=== PATIENT | female | born 1950 | race Caucasian/White ===

== ENCOUNTER 2024-01-30 14:26 | Inpatient (IN) | payer MEDICARE, OTHER, SELFPAY ==
[2024-01-30] VITALS (10 sets, daily range): BP systolic 114–158; BP diastolic 45–83; BMI 30.4
--- NOTE | 2024-01-30 09:00 | ED.GENMED ---
History of Present Illness
General
Chief Complaint: Chest Pain
Source: patient
Exam Limitations: none
Time Seen by Provider: 01/30/24 08:59
Travel History
Have you had any contact with someone who has COVID-19?: No
Do you have any symptoms of coronavirus? Fever > 100 degrees, chills, cough, shortness of breath, sore throat, loss of taste or smell, muscle aches, or headache?: No
History of Present Illness
History of Present Illness:
73-year-old female presenting with burning in her chest radiating to the right jaw and some to the left arm. Started at 637 this morning. Occurred at rest. No shortness of breath no shearing back pain. Some weakness in her legs bilaterally.
Patient is fairly active and was active yesterday without issues. Has symptoms now but relatively minimal
Past History
Past History
ED Past Medical History: Arrthythmia (History of atrial fibrillation), GERD, HTN and Other (History of hiatal hernia and history of pneumonia, back pain, back pain, anxiety)
ED Past Surgical History: Gynecological (Partial hysterectomy) and Other (cardiac ablation)
Social History
Tobacco: Non-smoker
Alcohol: Occasional
Drug: None
Personal: Other (unknown)
Living: with family
Employment: Employed
Family History
Family History: Other (Noncontributory)
Review of Systems
Review of Systems
All Other Systems: Not applicable
ABD/GI: Reports no symptoms
Neurological: Reports no symptoms
Phy Exam
Physical Exam
Physical Exam:
GENERAL: Alert and oriented in no apparent distress
EYE: Orbits normal.
NECK: Supple. No thyroid palpable
ENT: Pharynx without erythema
CARDIAC: Regular rate and rhythm without any obvious murmurs. Good distal pulses and color
LUNGS: Clear breath sounds,normal
ABDOMEN: Soft, without focal tenderness or distention
NEUROLOGICAL: Alert and oriented , grossly non-focal
SKIN: Warm and dry, no rash or lesion, no discoloration, skin intact.
MUSCULOSKELETAL: No edema,no deformity.Good color
PSYCH: Normal and appropriate interaction.
Scores
Heart Score for Chest Pain Patients
STEMI patient?: Not applicable
Course
Orders/Labs/Results
Orders:
Orders
01/30/24 08:02
EKG [Electrocardiogram (*1)] Urgent
Reason for Study: Chest Pain
EKG- Treatment ONCE
01/30/24 09:09
IV Insert/Care/Rem.- Treatment PRN
0.9% Sodium Chloride 500 ml [Nss] 500 ml IV BOLUS
Pulse Ox/cont/shift [RESP] Stat
Quantity: 1
01/30/24 09:10
CT Chest Pe Study Urgent
Comment:
Reason For Exam: Chest pain to the jaw with bilateral leg pain
Cardiac Monitoring- Treatment ONCE
01/30/24 09:13
Complete Blood Count/With Diff Urgent
Comprehensive Metabolic Panel Urgent
Lipase Urgent
TSH Reflex To Free T4 Urgent
Troponin I Urgent
01/30/24 11:58
Mag Hydrox/Al Hydrox/Simeth [Maalox] 30 ml Phenobarb/Hyoscy/Atropine/Scop [] 10 ml PO NOW
01/30/24 11:59
Electrocardiogram (*1) Stat
Reason for Study: Other
Other Reason for Exam: chest pain
EKG- Treatment ONCE
01/30/24 12:20
Troponin I Urgent
01/30/24 12:31
Mag Hydrox/Al Hydrox/Simeth [Maalox] 30 ml .ROUTE .STK-MED ONE
Phenobarb/Hyoscy/Atropine/Scop [] 10 ml .ROUTE .STK-MED ONE
01/30/24 14:01
Admit/Transfer Patient As Directed
Co-Sign Provider:
Level of Care: Inpatient admission
Assign to:: Telemetry
Physician / Group: Hospitalist
Diagnosis: PE
Reason for Telemetry: Chest Pain syndromes
Date to Stop Telemetry: 02/01/24
Time to Stop Telemetry: 11:00
Reason for Hospitalization: PE
Expected length of stay greater than two midnights?: Yes
ELOS- Estimated Length of Stay in days: 3
I certify the patient meets the requirements for IP care: Yes
01/30/24 14:03
Code Status As Directed
Resuscitation Status: Full Code
01/30/24 14:[address] See Dose Instructions PO NOW STA
Discontinue all Active Warfarin orders?: Not Applicable
02/01/24 11:00
DC Protocol for Telemetry ONCE
Abnormal Lab Results
01/30/24
09:13
RBC 3.99 L 10^6/uL
(4.20-5.40)
MCH 31.8 H pg
(27.0-31.0)
MPV 11.1 H fL
(7.4-10.4)
Glucose 107 H mg/dl
(70-99)
01/30/24 09:13
01/30/24 09:13
Vital Signs
Initial and Last Documented VS:
Initial Vital Signs
Temp Pulse Resp BP Pulse Ox
98.4 F 59 16 130/76 98
01/30/24 08:10 01/30/24 08:10 01/30/24 08:10 01/30/24 08:10 01/30/24 08:10
Last Documented Vital Signs
Temp Pulse Resp BP Pulse Ox
98.4 F 66 15 134/70 98
01/30/24 08:10 01/30/24 11:12 01/30/24 11:12 01/30/24 12:34 01/30/24 08:10
MDM/Problems Addressed
Differential Diagnosis Includes:
Patient with intermittent chest burning to the jaw and arm. Nonexertional. Patient had a nuclear stress test last year that was felt to be negative by cardiology but upon reading it seemed mildly inconclusive. Clinically stable. Workup in
progress
*Radiology
Radiology exam reviewed: radiology read reviewed (Segmental PE)
*Pulse Oximetry
Patient hypoxic: no
*EKG
Interpreted by ED Provider?: Yes
Interpretation: abnormal
Comparison EKG: changes noted
Heart Rate: 60
Rate: normal
Rhythm: sinus
[place]: normal axis
Interval: normal interval
QRS Pattern: low voltage
Ischemia: non-specific ST changes
*Critical Care Note
Total Time (30-74mins, 75-104mins- exclusive of procedures): Not Applicable
Data Reviewed
Review of Other/Old Records Reveals: Labs and Testing
Update Note
Update Note:
Patient with a segmental PE. Subtherapeutic Eliquis for pulmonary emboli. Doubt this is causing her chest pain but with possible cardiac etiology and this new or possibly new segmental PE warrants inpatient management
ED Attending Note
-
Portions of this chart may have been created with voice recognition software.� Occasional wrong word or��sound alike� substitutions may have occurred due to the inherent limitations of voice recognition software.
Discharge Plan
Departure
Patient Disposition: Admit
Date of Disposition: 01/30/24
Time of Disposition: 13:02
Presentation/result/management discussed w/ accepting MD/DO: Hospitalist
Discharge Problem:
Anterior chest pain, Segmental pulmonary emboli
Prescriptions:
No Action
cranberry 400 mg Capsule
400 mg PO DAILY
magnesium 200 mg Tablet
150 mg PO DAILY
cholecalciferol (vitamin D3) [Vitamin D3] 25 mcg (1,000 unit) Tablet
25 mcg PO DAILY
Visbiome 112.5 billion cell Capsule
1 cap PO DAILY
omega 0-ooi-eit-fish oil [Fish Oil] 1,000 mg (120 mg-180 mg) Capsule
1 cap PO DAILY
Eliquis 2.5 mg Tablet
2.5 mg PO BID
Rx Instructions:
01/30/24 PATIENT RECIEVING FREE SAMPLES
d-mannose 500 mg Capsule
500 mg PO DAILY
Referrals:
Vanesa Craven DO [Family Provider] -
Interventions
Interventions:
*Risk Screen - Suicide Last Done: 01/30/24 08:10
*General Assessment Last Done: 01/30/24 08:10
*Neglect/Abuse Screening Last Done: 01/30/24 08:10
*ED COVID-19 Vaccine History Last Done: 01/30/24 09:06
ED- Cardiac Assessment Last Done: 01/30/24 09:07
Discharge Date and Time
Print Language: BENINESE
--- NOTE | 2024-01-30 09:48 | EDRN ---
Unable to obtain IV access at this time, IV team paged
[2024-01-30 10:36] LABS: % Basophils 0.9 % (0-2); % Eosinophils 2.8 % (0-6); % Immature Granulocytes 0.4 % (0-0.5); % Lymphocytes 25.1 % (20.5-51.1); % Monocytes 8.7 % (1.7-9.3); % Neutrophils 62.1 % (42.2-75.2); Absolute Basophils 0.1 10^3/uL (0-0.2); Absolute Eosinophils 0.2 10^3/uL (0-0.7); Absolute Lymphocytes 1.4 10^3/uL (1.2-3.4); Absolute Monocytes 0.5 10^3/uL (0.1-0.6); Absolute Neutrophils 3.4 10^3/uL (1.4-6.5); Hematocrit 37.4 % (37.0-47.0); Hemoglobin 12.7 g/dL (12.0-16.0); Mean Corpuscular Hgb 31.8 pg (27.0-31.0); Mean Corpuscular Volume 93.7 fL (81.0-99.0); Mean Platelet Volume 11.1 fL (7.4-10.4); Nucleated Red Blood Cells % 0 %; Platelet Count 201 10^3/uL (130-400); Red Blood Cell Count 3.99 10^6/uL (4.20-5.40); Red Cell Dist. Width 13.3 % (11.5-14.5); White Blood Cell Count 5.4 10^3/uL (4.8-10.8)
--- NOTE | 2024-01-30 10:36 | EDRN ---
Midline catheter placed by WATCH COMMANDER to [facility]
[2024-01-30] MEDS: NSS 500 IV (10:37)
[2024-01-30 10:54] LABS: ALT (SGPT) 29 U/L (0-35); AST (SGOT) 30 U/L (14-36); Albumin 4.3 g/dl (3.5-5.0); Alkaline Phosphatase 91 U/L (38-126); Blood Urea Nitrogen 17 mg/dl (7-17); Calcium 9.7 mg/dl (8.4-10.2); Carbon Dioxide 27 mmol/L (22-30); Chloride 107 mmol/L (98-107); Glucose 107 mg/dl (70-99); Lipase 110 U/L (23-300); Potassium 4.2 mmol/L (3.5-5.1); Sodium 139 mmol/L (135-145); Total Bilirubin 0.8 mg/dl (0.2-1.3); Total Protein 7.1 g/dl (6.3-8.2); eGFR > 60.00
[2024-01-30 11:01] LABS: Troponin I < 0.012 ng/ml
[2024-01-30 11:37] LABS: TSH Reflex To Free T4 1.63 uIU/ml (0.47-4.68)
[2024-01-30] MEDS: MAALOX 40 PO (12:33)
[2024-01-30 12:51] LABS: Troponin I < 0.012 ng/ml
--- NOTE | 2024-01-30 13:51 | HPS.HSE ---
Family Physician
-
Family Physician: Vanesa Craven, DO
Chief Complaint
-
Chest pain
History of Present Illness
73-year-old woman with burning in her chest, radiating to the right jaw, and some radiation to the left arm. This Started at 6:37 this morning, at rest. She has had No shortness of breath, and no shearing back pain. She complaints of Some
weakness in her legs bilaterally. She is fairly active and was active yesterday without issues. Her symptoms improved in the ED. CT found a PE. o recent trauma, no recent travel. She takes 1/2 dose eliquis. Her mother had Afib/stroke, her
grandmother had PE.
Medical History
Past Medical History
Past Medical History: Reports Other
Additional Past Medical History:
Arrthythmia (History of paroxysmal atrial fibrillation),
GERD,
essential HTN
History of hiatal hernia
history of pneumonia,
back pain,
anxiety
Partial hysterectomy
cardiac ablation
recent gall bladder removal
Past Surgical History: Reports Other
Additional Past Surgical History:
See above
Social History
Tobacco: Non-smoker
Alcohol: None
Drug: None
Family History
Family History: Other (See HPI)
Allergies / Home Medications
Allergies reflects when Allergies were last updated in [facility].
Home Medications with original date entered in [facility]
Allergy/Medication List:
Allergies
Allergy/AdvReac Type Severity Reaction Status Date / Time
Cat/Feline Produc Allergy Hives Verified 01/30/24 08:10
*RETIRED-07/20/12
[Cat/Feline Product
Derivatives]
dog dander Allergy Hives Verified 01/30/24 08:10
flecainide [Flecainide] Allergy EXACERBATES Verified 01/30/24 08:10
ARRYTHMIA
morphine Allergy Vomiting Verified 01/30/24 08:10
oxycodone HCl [From Percocet] Allergy Vomiting Verified 01/30/24 08:10
Penicillins Allergy Hives Verified 01/30/24 08:10
pollen extracts Allergy POLLEN-JEFF Verified 01/30/24 08:10
ESTION
ragweed pollen Allergy SNEEZING Verified 01/30/24 08:10
Sulfa (Sulfonamide Allergy Hives Verified 01/30/24 08:10
Antibiotics)
[Sulfa (Sulfonamides)]
Home Medications
Lactobac no.2-Bifidobac no.1-S. thermo 112.5 billion cell capsule (Visbiome) 1 cap PO DAILY 01/30/24
apixaban 2.5 mg tablet (Eliquis) 2.5 mg PO BID 01/30/24
cholecalciferol (vitamin D3) 25 mcg (1,000 unit) tablet (Vitamin D3) 25 mcg PO DAILY 01/30/24
cranberry 400 mg capsule 400 mg PO DAILY 01/30/24
d-mannose 500 mg capsule 500 mg PO DAILY 01/30/24
magnesium 200 mg tablet 150 mg PO DAILY 01/30/24
omega 6-ump-noq-fish oil 1,000 mg (120 mg-180 mg) capsule (Fish Oil) 1 cap PO DAILY 01/30/24
Review of Systems
-
History Source: Patient
A 12 point ROS was completed and negative except as noted: Yes
Physical Exam
Vital Signs
Vital Signs
Temp Pulse Resp BP Pulse Ox
98.4 F 66 15 134/70 98
01/30/24 08:10 01/30/24 11:12 01/30/24 11:12 01/30/24 12:34 01/30/24 08:10
Physical Exam
General: Well Developed, Well Nourished, No Apparent Distress, Comfortable and Conversant
HEENT: NormoCephalic, Moist mucous membranes, Atraumatic, [place] Conjunctivae, Nose Appears Normal and Ears Appear Normal
Respiratory: Clear
Cardiac: S1/S2 and Regular Rhythm
GI: Soft, Non Tender and Non Distended
Musculoskeletal: No Clubbing, No Cyanosis and No Edema
Skin: Warm and Dry; No Rash or Jaundice
Neuro: Awake, Alert, Oriented and AO x 3
Psych: Calm
Laboratory Results
-
01/30/24 09:13
01/30/24 09:13
Laboratory Results
Total Bilirubin 0.8 mg/dl (0.2-1.3) 01/30/24 09:13
AST 30 U/L (14-36) 01/30/24 09:13
ALT 29 U/L (0-35) 01/30/24 09:13
Alkaline Phosphatase 91 U/L (38-126) 01/30/24 09:13
Troponin I < 0.012 ng/ml 01/30/24 12:20
Lipase 110 U/L (23-300) 01/30/24 09:13
Data Reviewed
-
Lab Data: Labs Reviewed by me
Impression/Plan
-
IMPRESSION:
73 woman with chest pain, found to have a PE.
PLAN:
1. PE. No trauma, no travel, had been on 1/2 dose eliquis for afib.
Start heparin gtt
Review case in 2 days to eval for outpt anti-coag strategy
2. Chest pain, could be from PE, but could be for ACS
CLARA
Tele
3. Afib, right now in sinus, rate controlled.
No need to add rate control meds
Anticoag strategy as above.
4. GERD - could be cause of chest pain, not currently on therapy
Add PPi
Code: Full
Heparin for DVTp
[2024-01-30] MEDS: PROTONIX 40 MG PO (15:57)
[2024-01-30 17:00] LABS: Hematocrit 36.2 % (37.0-47.0); Hemoglobin 12.3 g/dL (12.0-16.0); Mean Corpuscular Volume 94.3 fL (81.0-99.0); Mean Platelet Volume 11.5 fL (7.4-10.4); Platelet Count 209 10^3/uL (130-400); Red Blood Cell Count 3.84 10^6/uL (4.20-5.40); Red Cell Dist. Width 13.6 % (11.5-14.5); White Blood Cell Count 7.6 10^3/uL (4.8-10.8)
[2024-01-30] MEDS: HEPARIN 25000 UNITS/250 ML IV (17:05)
[2024-01-30 17:13] LABS: APTT 31.6 Sec (23.4-35.0)
[2024-01-30 17:30] LABS: Troponin I < 0.012 ng/ml
[2024-01-30 21:25] LABS: Troponin I < 0.012 ng/ml
[2024-01-31] MEDS: TYLENOL 650 MG PO ×2 (02:06→21:47)
[2024-01-31 02:10] LABS: APTT > 200 Sec (23.4-35.0)
[2024-01-31 03:30] VITALS: BP 109/56
[2024-01-31 07:16] LABS: Hematocrit 33.9 % (37.0-47.0); Hemoglobin 11.3 g/dL (12.0-16.0); Mean Corp Hgb Conc. 33.3 g/dL (33.0-37.0); Mean Corpuscular Hgb 32.3 pg (27.0-31.0); Mean Corpuscular Volume 96.9 fL (81.0-99.0); Mean Platelet Volume 11.9 fL (7.4-10.4); Platelet Count 187 10^3/uL (130-400); Red Cell Dist. Width 13.6 % (11.5-14.5); White Blood Cell Count 6.2 10^3/uL (4.8-10.8)
[2024-01-31 07:28] LABS: Troponin I < 0.012 ng/ml
[2024-01-31 07:35] VITALS: BP 118/55
[2024-01-31 08:18] LABS: ALT (SGPT) 22 U/L (0-35); AST (SGOT) 22 U/L (14-36); Albumin 3.4 g/dl (3.5-5.0); Alkaline Phosphatase 78 U/L (38-126); Blood Urea Nitrogen 18 mg/dl (7-17); Calcium 8.9 mg/dl (8.4-10.2); Carbon Dioxide 27 mmol/L (22-30); Chloride 105 mmol/L (98-107); Estimated Creatinine Clearance 93 ml/min; Glucose 90 mg/dl (70-99); Potassium 3.8 mmol/L (3.5-5.1); Sodium 137 mmol/L (135-145); Total Bilirubin 0.8 mg/dl (0.2-1.3); Total Protein 5.9 g/dl (6.3-8.2); eGFR > 60.00
[2024-01-31] MEDS: PROTONIX PO (08:26)
[2024-01-31] MEDS: VITAMIN D3 (cholecalciferol) 25 MCG PO (08:26)
[2024-01-31] MEDS: MAG-TAB SR 84 MG PO (08:26)
[2024-01-31] MEDS: VISBIOME 1 CAP PO (08:26)
--- NOTE | 2024-01-31 10:47 | W.PN.HOSP.TC ---
Today's Communication/Plan
-
consult heme and cards (cards can see tomorrow)
cont heparin drip
stop serial troponins
ECHO in AM
Assessment / Plan
Assessment / Plan
pt is a 73 year old female
acute PE--No trauma, no travel, had been on 1/2 dose eliquis for paroxysmal afib--cont heparin drip for now--consult heme, cards--echo in AM
Chest pain--likely from PE--serial troponins negative
Paroxysmal Afib--bradycardic--wishes to speak with Dr. Stefan Clements--will consult cards
GERD - could be cause of chest pain (burning although pt denies this)--cont protonix
Code status -- Full
Heparin for DVTp
Anticipated Discharge: > 48 hours
Subjective/Interval History
-
Date of Service: January 31, 2024
pt feels a little weak--no further cp
Objective Data
-
Labs:
Laboratory Results
01/31/24 01/31/24 01/31/24
01:24 06:20 06:21
WBC 6.2
Hgb 11.3 L
Hct 33.9 L
Plt Count 187
APTT > 200 H*
Sodium 137
Potassium 3.8
Chloride 105
Carbon Dioxide 27
BUN 18 H
Creatinine 0.5 L
Glucose 90
Calcium 8.9
Total Bilirubin 0.8
AST 22
ALT 22
Alkaline Phosphatase 78
01/31/24
10:07
WBC
Hgb
Hct
Plt Count
APTT Pending
Sodium
Potassium
Chloride
Carbon Dioxide
BUN
Creatinine
Glucose
Calcium
Total Bilirubin
AST
ALT
Alkaline Phosphatase
Vital Signs:
max temp for 24 hours
01/30/24
19:50
Temp 98.2 F
Vital Signs
Temp Pulse Resp BP Pulse Ox
98.1 F 55 18 118/55 96
01/31/24 07:35 01/31/24 07:35 01/31/24 07:35 01/31/24 07:35 01/31/24 07:35
I&O
01/30/24 01/31/24 02/01/24
06:59 06:59 06:59
Intake Total 1054 / 1054
Balance 1054 / 1054
Review of Systems
-
All other systems: Reviewed and negative
Physical Exam
-
General: Well Developed, Well Nourished and No Apparent Distress
HEENT: Normocephalic and Atraumatic
Respiratory: Clear to Auscultation; Negative Wheezes or Rhonchi
Cardiac: Regular Rhythm and S1/S2; Negative Murmur
GI: Soft, Nontender, Nondistended and Normal Bowel Sounds
Musculoskeletal: No Clubbing, No Cyanosis and No Edema
Skin: Warm
Neuro: Awake
Psych: Calm
[2024-01-31] MEDS: HEPARIN 25000 UNITS/250 ML IV (10:54)
[2024-01-31 11:14] LABS: APTT 199.5 Sec (23.4-35.0)
[2024-01-31 11:30] VITALS: BP 122/71
--- NOTE | 2024-01-31 11:49 | CON.ONC ---
Impression
Impression
unprovoked pulmonary embolism
paroxysmal afib, was only taking Eliquis 2.5mg bid instead of prescribed 5mg bid
family history of PE in grandfather
Plan
Plan
Discussed the need for full anticoagulation for PE
Heparin gtt currently, could convert to Eliquis 10mg bid x7d, then 5mg BID indefinitely in setting of parox Afib
Thrombophilia work-up not indicated
Will sign off, please call with questions
Patient History
History of Present Illness
This is a 73yo F w/ h/o paroxysmal afib. She's been prescribed Eliquis 5mg bid, but is only taking 2.5mg bid because of fear of bleeding, and when her 'stress levels are lower and the afib isn't active.' She woke early this am with chest discomfort
and a surge of heat through her body, like 'when I get IV contrast for CT scan.' She had an episode of chest discomfort a few days ago as well. She sought ER evaluation and was found to have PE in the lingular segment pulm artery. She was started on
heparin. She denies any bleeding. No recent surgery, travel, trauma, COVID, immobilization.
Past-Medical/Surgical History
Past Medical History
Past Medical History: Reports Other
Additional Past Medical History:
Arrthythmia (History of paroxysmal atrial fibrillation),
GERD,
essential HTN
History of hiatal hernia
history of pneumonia,
back pain,
anxiety
Partial hysterectomy
cardiac ablation
gall bladder removal
Past Surgical History: Reports Other
Additional Past Surgical History:
See above
Social History
Tobacco: Non-smoker
Alcohol: None
Drug: None
Family History
Family History: grandfather had PE, mother had stroke
Patient Medication
�Medication �Instructions �Recorded �Confirmed �Last Taken �Type
Lactobac no.2-Bifidobac no.1-S. 1 cap PO DAILY 01/30/24 01/30/24 Unknown History
thermo 112.5 billion cell capsule
(Visbiome)
apixaban 2.5 mg tablet (Eliquis) 2.5 mg PO BID 01/30/24 01/30/24 01/29/24 History
cholecalciferol (vitamin D3) 25 25 mcg PO DAILY 01/30/24 01/30/24 Unknown History
mcg (1,000 unit) tablet (Vitamin
D3)
cranberry 400 mg capsule 400 mg PO DAILY 01/30/24 01/30/24 01/29/24 History
d-mannose 500 mg capsule 500 mg PO DAILY 01/30/24 01/30/24 01/29/24 History
magnesium 200 mg tablet 150 mg PO DAILY 01/30/24 01/30/24 01/29/24 History
omega 8-nfc-rxv-fish oil 1,000 mg 1 cap PO DAILY 01/30/24 01/30/24 Unknown History
(120 mg-180 mg) capsule (Fish Oil)
Active Medications
Generic Name Dose Route Start Last Admin
Trade Name Freq PRN Reason Stop Dose Admin
Acetaminophen 650 mg 01/30/24 15:22 01/31/24 02:06
Acetaminophen 325 Mg Tablet PO 02/27/24 15:21 650 mg
Q4HPRN PRN Administration
mild pain/temp > 100.4 F
Cholecalciferol 25 mcg 01/31/24 08:00 01/31/24 08:26
Cholecalciferol (Vitamin D3) 25 Mcg Tablet (1,000 Units) PO 02/28/24 07:59 25 mcg
DAILY TRACY Administration
Heparin Sodium 6,900 units 01/30/24 15:51
Heparin 80 Units/Kg Iv Rebolus IV 02/27/24 15:50
PRN PRN
PTT < OR = 64 seconds
Heparin Sodium 3,400 units 01/30/24 15:49
Heparin 40 Units/Kg Iv Rebolus IV 02/27/24 15:48
PRN PRN
PTT = 64.1 to 72.9 seconds
Heparin Sodium 25,000 units in 250 mls @ 0 mls/hr 01/30/24 15:22 01/31/24 10:54
Heparin 06420 Units/250 Ml IV 250 mls
PER PROTOCOL TRACY Administration
Protocol
Per Protocol
Lactobacillus/Bifidobacterium 1 cap 01/31/24 08:00 01/31/24 08:26
Lactobac/Bifidobac (Visbiome) PO 02/28/24 07:59 1 cap
DAILY TRACY Administration
Magnesium 84 mg 01/31/24 08:00 01/31/24 08:26
Magnesium Lactate 84 Mg Tablet PO 02/28/24 07:59 84 mg
DAILY TRACY Administration
Pantoprazole Sodium 40 mg 01/30/24 15:22 01/31/24 08:26
Pantoprazole 40 Mg Delayed Release Tablet PO 02/27/24 15:21 Not Given
DAILY TRACY
Review of Systems
-
All Other Systems: Not reviewed unless documented
Physical Exam
-
General: Well Developed, Well Nourished, No Apparent Distress, Comfortable and Conversant
HEENT: Negative Jaundice
Cardiology: Normal Sinus Rhythm
Pulmonary: Clear
GI: Soft; Negative Distended
Musculoskeletal: No Clubbing, No Cyanosis and No Edema
Extremities: No C/C/E
Neurology: Non Focal, No Lateralizing Symptoms and No Word Finding Difficulty
Skin: Warm and Dry
Psych: Calm and Intact Judgement/Insight
Labs
Lab Results
WBC 6.2 10^3/uL (4.8-10.8) 01/31/24 06:20
RBC 3.50 10^6/uL (4.20-5.40) L 01/31/24 06:20
Hgb 11.3 g/dL (12.0-16.0) L 01/31/24 06:20
Hct 33.9 % (37.0-47.0) L 01/31/24 06:20
MCV 96.9 fL (81.0-99.0) 01/31/24 06:20
MCH 32.3 pg (27.0-31.0) H 01/31/24 06:20
MCHC 33.3 g/dL (33.0-37.0) 01/31/24 06:20
RDW 13.6 % (11.5-14.5) 01/31/24 06:20
Plt Count 187 10^3/uL (130-400) 01/31/24 06:20
MPV 11.9 fL (7.4-10.4) H 01/31/24 06:20
Abs Immat Gran (auto) 0.0 10^3/uL (0-0.05) 01/30/24 09:13
Absolute Neuts (auto) 3.4 10^3/uL (1.4-6.5) 01/30/24 09:13
Absolute Lymphs (auto) 1.4 10^3/uL (1.2-3.4) 01/30/24 09:13
Absolute Monos (auto) 0.5 10^3/uL (0.1-0.6) 01/30/24 09:13
Absolute Eos (auto) 0.2 10^3/uL (0-0.7) 01/30/24 09:13
Absolute Basos (auto) 0.1 10^3/uL (0-0.2) 01/30/24 09:13
Immature Gran % 0.4 % (0-0.5) 01/30/24 09:13
Neutrophils % 62.1 % (42.2-75.2) 01/30/24 09:13
Lymphocytes % 25.1 % (20.5-51.1) 01/30/24 09:13
Monocytes % 8.7 % (1.7-9.3) 01/30/24 09:13
Eosinophils % 2.8 % (0-6) 01/30/24 09:13
Basophils % 0.9 % (0-2) 01/30/24 09:13
Creatinine 0.5 mg/dL (0.6-1.0) L 01/31/24 06:21
Vital Signs
Vital Signs
Temp Pulse Resp BP Pulse Ox
98.1 F 55 18 118/55 96
01/31/24 07:35 01/31/24 07:35 01/31/24 07:35 01/31/24 07:35 01/31/24 07:35
--- NOTE | 2024-01-31 14:59 | CM ---
Met with patient at the bedside; initial assessment completed
Pharmacy verified: [facility]
Patient reported that she and her live in a [place] w/basement; 1 step to enter; 12 steps down to basement; full bath has tub w/shower
PLOF: history of A-Fib; patient reported she is independent with ADLs, ambulation and steps; reported she has recently had some issues with her balance
DME: CPAP
SNF/Rehab/Home Care utilization history: none
Transportation: will provide ride home
Plan: discharge to home when medically stable; no needs anticipated
[2024-01-31 15:20] VITALS: BP 122/62
[2024-01-31 19:12] LABS: APTT 109.4 Sec (23.4-35.0)
[2024-01-31 19:33] VITALS: BP 143/70
[2024-01-31 23:20] VITALS: BP 140/65
[2024-02-01 03:03] LABS: APTT 135.4 Sec (23.4-35.0)
[2024-02-01 03:05] VITALS: BP 125/66
[2024-02-01 06:51] LABS: Hematocrit 33.4 % (37.0-47.0); Hemoglobin 11.2 g/dL (12.0-16.0); Mean Corp Hgb Conc. 33.5 g/dL (33.0-37.0); Mean Corpuscular Hgb 32.1 pg (27.0-31.0); Mean Corpuscular Volume 95.7 fL (81.0-99.0); Mean Platelet Volume 11.8 fL (7.4-10.4); Platelet Count 189 10^3/uL (130-400); Red Blood Cell Count 3.49 10^6/uL (4.20-5.40); Red Cell Dist. Width 13.5 % (11.5-14.5); White Blood Cell Count 5.1 10^3/uL (4.8-10.8)
[2024-02-01 07:34] LABS: Blood Urea Nitrogen 17 mg/dl (7-17); Calcium 8.3 mg/dl (8.4-10.2); Carbon Dioxide 25 mmol/L (22-30); Chloride 109 mmol/L (98-107); Estimated Creatinine Clearance 93 ml/min; Glucose 86 mg/dl (70-99); Magnesium 1.9 mg/dl (1.6-2.3); Potassium 3.8 mmol/L (3.5-5.1); Sodium 136 mmol/L (135-145); eGFR > 60.00
[2024-02-01 08:31] VITALS: BP 137/71
[2024-02-01] MEDS: MAG-TAB SR 84 MG PO (08:52)
[2024-02-01] MEDS: VITAMIN D3 (cholecalciferol) 25 MCG PO (08:53)
[2024-02-01] MEDS: VISBIOME 1 CAP PO (08:53)
[2024-02-01] MEDS: PROTONIX PO (08:55)
--- NOTE | 2024-02-01 09:08 | W.PN.HOSP.TC ---
Today's Communication/Plan
-
.
Assessment / Plan
Assessment / Plan
Physical Exam
-
General: Well Developed, Well Nourished and No Apparent Distress
HEENT: Normocephalic and Atraumatic
Respiratory: Clear to Auscultation; Negative Wheezes or Rhonchi
Cardiac: Regular Rhythm and S1/S2; Negative Murmur
GI: Soft, Nontender, Nondistended and Normal Bowel Sounds
Musculoskeletal: No Clubbing, No Cyanosis and No Edema
Skin: Warm
Neuro: Awake, she followed commands.
Psych: Calm, pleasant
pt is a 73 year old female
acute PE- left side -No trauma, no travel, had been on 1/2 dose Eliquis for paroxysmal a fib--cont heparin drip for 48 hours then change to Eliquis. Patient was using subtherapeutic dose fo Eliquis and would like to resume therapeutic dose
Counseled regarding potential benefits, side effects of Eliquis, blood thinner.
No hypoxia
Pain in chest has resolved
denies sob or fevers
will do Echo
Check US of legs
# Chest pain--likely from PE--serial troponin negative
# Paroxysmal Afib--bradycardic--wishes to speak with Dr. Stefan Clements--will consult cards
# GERD - could be cause of chest pain (burning although pt denies this)--cont Protonix
Code status -- Full
Heparin for DVTp
Total time spent to see the patient, examine the patient on the floor, review data and lab results, discuss treatment plan with patient, nursing staff around 55 minutes.
Anticipated Discharge: Within 24 hours
Subjective/Interval History
-
Date of Service: February 01, 2024
Objective Data
-
Labs:
Laboratory Results
02/01/24 02/01/24 02/01/24
02:02 06:21 10:45
WBC 5.1
Hgb 11.2 L
Hct 33.4 L
Plt Count 189
APTT 135.4 H Pending
Sodium 136
Potassium 3.8
Chloride 109 H
Carbon Dioxide 25
BUN 17
Creatinine 0.5 L
Glucose 86
Calcium 8.3 L
Vital Signs:
Vital Signs
Temp Pulse Resp BP Pulse Ox
98.3 F 60 18 137/71 98
02/01/24 08:31 02/01/24 08:31 02/01/24 08:31 02/01/24 08:31 02/01/24 08:31
I&O
01/31/24 02/01/24 02/02/24
06:59 06:59 06:59
Intake Total 1054 / 1054 960 / 960
Balance 1054 / 1054 960 / 960
[2024-02-01 11:14] LABS: APTT 51.2 Sec (23.4-35.0)
--- NOTE | 2024-02-01 11:25 | W.PN.UPDATE ---
Update Note
Progress Note Update
I met with the patient today we discussed her case this admission and we discussed maintaining strict compliance with recommended dose of anticoagulation. She understands.
All of her questions have been answered. From a cardiology standpoint no objection to discharge at any time when it is okay with primary service.
She has an appointment to see me next month.
[2024-02-01] MEDS: HEPARIN 6900 UNITS IV (11:45)
[2024-02-01 11:54] VITALS: BP 125/63
[2024-02-01] MEDS: HEPARIN 25000 UNITS/250 ML IV (15:28)
[2024-02-01] MEDS: DESENEX/MITRAZOL/ZEASORB 1 APPLIC TOPICAL ×2 (15:31→20:49)
[2024-02-01 15:48] VITALS: BP 147/67
--- NOTE | 2024-02-01 16:59 | PTCARENOTE ---
rounded on patient and she reported having burning hot pressure in her chest going up to her throat and down her legs to her toes, but she feels cold. BP 169/78, no SOB POX 99 on room air. Temp 98.0. She said this is what brought her in to the ER.
ECG completed. Dr Segovia made aware. within 10 minutes patient stating pressure is easing. instructed to call if pressure worsened. plan of care on going.
[2024-02-01 19:55] VITALS: BP 124/63
[2024-02-01] MEDS: ELIQUIS 10 MG PO (20:43)
[2024-02-01 23:27] VITALS: BP 109/64
[2024-02-02 03:12] VITALS: BP 107/65
[2024-02-02 07:00] VITALS: BP 118/65
[2024-02-02] MEDS: PROTONIX 40 MG PO (08:29)
[2024-02-02] MEDS: ELIQUIS 10 MG PO (08:29)
[2024-02-02] MEDS: MAG-TAB SR 84 MG PO (08:29)
[2024-02-02] MEDS: VISBIOME 1 CAP PO (08:30)
[2024-02-02] MEDS: VITAMIN D3 (cholecalciferol) 25 MCG PO (08:30)
--- NOTE | 2024-02-02 09:18 | W.DCSUMMARY ---
Discharge Summary
Discharge Data
Date of Admission: 01/30/24
Date of Discharge: 02/02/24
-
Pending Results: No
Hospital Course
74 years old female presented with sudden onset of chest discomfort described as burning sensation from the chest going upward and downward. She did not have shortness of breath, diaphoresis or cough. She had scan angiogram of the chest that
showed lack of enhancement involving the left lingular segment pulmonary artery, consistent with thrombosis. Echocardiogram showed left ventricular normal size and function with ejection fraction of 65 to 70%, trace tricuspid regurgitation and
normal right ventricle. Her echocardiogram was unchanged from previous echocardiogram done in 2021. She was evaluated by communications attendant with no changes recommended. Ultrasound of the both legs did not show blood clot. Patient did not have hypoxia.
She was evaluated by inspector rubber stamp die. Recommended loading dose of Eliquis then regular dose on samaniego. Patient was taking Eliquis at home for history of atrial fibrillation but was taking half the dose that was recommended by her communications attendant
Nilay Clements. Patient was counseled regarding potential benefits and risks of systemic anticoagulation therapy and she verbalized understanding. Patient remained hemodynamically stable. Cardiac enzymes and electrocardiogram did not show
evidence of acute ischemia. Patient was discharged home in a stable condition.
Physical Exam
-
General: Well Developed, Well Nourished and No Apparent Distress
HEENT: Normocephalic and Atraumatic
Respiratory: Clear to Auscultation; Negative Wheezes or Rhonchi
Cardiac: Regular Rhythm and S1/S2; Negative Murmur
GI: Soft, Nontender, Nondistended and Normal Bowel Sounds
Musculoskeletal: No Clubbing, No Cyanosis and No Edema
Skin: Warm
Neuro: Awake, she followed commands.
Psych: Calm, pleasant.
Total discharge time spent to see the patient, examine the patient on the floor, review data and lab results, discuss discharge plan with patient, nursing staff around 65 minutes.
Discharge Plan
-
Patient Disposition: Home (Routine Discharge)
Discharge Diagnosis/Procedures: Pulmonary embolism.
You are seen by communications attendant and inspector rubber stamp die. Ultrasound of legs did not show blood clot. Echocardiogram was unchanged from previous echocardiogram done in 2021. You did not have hypoxia.
Continue Eliquis 10 mg twice a day as a loading dose. Last dose of this loading dose will be on a.m. dose of Thursday, February 07 then continue 5 mg twice daily after that.
Diet: As tolerated
Referrals:
Vanesa Craven, [Family Provider] - in one to two weeks
Prescriptions:
New
Eliquis 5 mg Tablet
10 mg PO BID Qty: 60 0RF
Continued
cranberry 400 mg Capsule
400 mg PO DAILY
magnesium 200 mg Tablet
150 mg PO DAILY
cholecalciferol (vitamin D3) [Vitamin D3] 25 mcg (1,000 unit) Tablet
25 mcg PO DAILY
Visbiome 112.5 billion cell Capsule
1 cap PO DAILY
omega 4-rwo-iqf-fish oil [Fish Oil] 1,000 mg (120 mg-180 mg) Capsule
1 cap PO DAILY
Discontinued
Eliquis 2.5 mg Tablet
2.5 mg PO BID
Rx Instructions:
01/30/24 PATIENT RECIEVING FREE SAMPLES
d-mannose 500 mg Capsule
500 mg PO DAILY
Discharge Orders:
Discharge Patient (As Directed); Ordered 02/02/24
Ordered By: Darci Segovia
Discharge Date and Time
Print Language: GEORGIAN
[2024-02-02 11:00] VITALS: BP 130/78
--- NOTE | 2024-02-02 11:41 | CM ---
Bedside meeting with pt per her request
DC orde rnoted
Pt notes her Eliquis is not affordable
Pt does not qualify for a co-pay card due to [facility] status
Assistance program info provided- pt called and she is financially over-resourced for program
Pt notes she will take on costs for the next few months- she will look into upgrading her Part D plan
Provided Medicare.gov info and educated on insurance plan comparison tool
No other dc needs noted
IMM verbally reviewed and copy provided
Discharge Disposition- home, no needs- family transport
== END 2024-02-02 12:23 | disposition home or self-care (01) | DRG 176 ==
LOC: 4 EAST ACU 14:26
PROVIDERS: Internal Medicine; ADMITTING PHYSICIAN Internal Medicine; ATTENDING PHYSICIAN Internal Medicine; EMERGENCY PHYSICIAN Emergency Medicine; FAMILY PHYSICIAN Student in an Organized Health Care Education/Training Program; OTHER PHYSICIAN Internal Medicine Hematology & Oncology
DX: I26.99 Other pulmonary embolism without acute cor pulmonale (principal); I48.0 Paroxysmal atrial fibrillation; K21.9 Gastro-esophageal reflux disease without esophagitis; Z79.01 Long term (current) use of anticoagulants
CPT/HCPCS: 71275; 80048; 80053; 83690; 83735; 84443; 84484; 85025; 85027; 85730; 93005; 93306; 93970; 96360; 96361; 99285; Q9967

== ENCOUNTER 2024-02-09 12:10 | Emergency (ER) | payer MEDICARE, OTHER, SELFPAY ==
[2024-02-09 12:23] VITALS: BP 141/84
[2024-02-09 13:36] VITALS: BP 118/77
--- NOTE | 2024-02-09 14:48 | ED.GENMED ---
History of Present Illness
General
Chief Complaint: Chest Pain
Source: patient
Exam Limitations: none
Time Seen by Provider: 02/09/24 14:15
Travel History
Have you had any contact with someone who has COVID-19?: No
Do you have any symptoms of coronavirus? Fever > 100 degrees, chills, cough, shortness of breath, sore throat, loss of taste or smell, muscle aches, or headache?: No
History of Present Illness
History of Present Illness:
73-year-old female presents for recurrent burning sensation in the chest. She was here last week with the same burning sensation in her chest and was diagnosed with a lingular pulmonary embolism. She was admitted started on heparin and transition
to Eliquis. She finished her loading dose of Eliquis at 10 mg twice a day and recently transition to 5 mg twice a day. She was feeling well a couple days ago was outside cleaning and last evening she developed increasing burning sensation in her
chest exactly the same as what it was last week. She had similar sensations while in the hospital. Cardiac workup was negative. She is a very hard stick and had a midline in her left arm. She is hesitant to have more blood work if not necessary.
She denies shortness of breath. She was not short of breath last visit.
Past History
Past History
ED Past Medical History: Arrthythmia (History of atrial fibrillation), GERD, HTN and Other (History of hiatal hernia and history of pneumonia, back pain, back pain, anxiety)
ED Past Surgical History: Gynecological (Partial hysterectomy) and Other (cardiac ablation)
Social History
Tobacco: Non-smoker
Alcohol: Occasional
Drug: None
Personal: Other (unknown)
Living: with family
Employment: Employed
Family History
Family History: Other (Noncontributory)
Phy Exam
Physical Exam
Physical Exam:
General: Well-appearing female no acute respiratory distress
HEENT: Normocephalic atraumatic
Heart: Regular rate and rhythm no murmurs
Lungs: Clear to auscultation bilaterally no wheezing
Extremities: No cyanosis or edema skin: Warm no rash
Scores
Heart Score for Chest Pain Patients
STEMI patient?: No
History: Slightly or Non-Suspicious
ECG: Normal
Age: >/= 65 years
Risk Factors: No Risk Factors
Troponin: </= Normal Limit
Heart Score for Chest Pain Patients: 2
Heart Score Risk: 2.5% MACE over next 6 weeks
Course
Orders/Labs/Results
Orders:
Orders
02/09/24 12:31
EKG [Electrocardiogram (*1)] Urgent
Reason for Study: Chest Pain
02/09/24 12:32
EKG- Treatment ONCE
02/09/24 14:56
CR Chest - 2 Views Urgent
Comment:
Reason For Exam: chest pain
Vital Signs
Initial and Last Documented VS:
Initial Vital Signs
Temp Pulse Resp BP Pulse Ox
98.9 F 59 18 141/84 99
02/09/24 12:23 02/09/24 12:23 02/09/24 12:23 02/09/24 12:23 02/09/24 12:23
Last Documented Vital Signs
Temp Pulse Resp BP Pulse Ox
98.9 F 59 18 141/84 99
02/09/24 12:23 02/09/24 12:23 02/09/24 12:23 02/09/24 12:23 02/09/24 12:23
MDM/Problems Addressed
Differential Diagnosis Includes:
Chest burning sensation very similar to what brought her in about 9 days ago and was diagnosed with a PE. Vital signs are stable not short of breath. Not pleuritic. She had been on Eliquis 2 and half milligrams twice a day prior to the onset of
the PE. She was treated with heparin then did a weeks worth of 10 mg twice a day of Eliquis and has been on 5 mg twice a day since. Is very unlikely the patient has increased clot burden after the treatment she received in the hospital. Question
of the sources of burning chest discomfort such as pleurisy or GERD. Discussed with emergency room attending as well as pulmonology. Pulmonology recommended starting with a chest x-ray to see if there is any sign of increased infarct. If so
consider CT scan and repeat PE study. If x-ray is clear no need to change to continue the Eliquis and could potentially be discharged
*Critical Care Note
Total Time (30-74mins, 75-104mins- exclusive of procedures): Not Applicable
Update Note
Update Note:
Chest x-ray negative and clear. Patient reassured. Unlikely the patient is forming more clots Eliquis on board. She has stable vital signs. Discussed with pulmonology. Will have patient follow-up with pulmonology.
ED Attending Note
-
Portions of this chart may have been created with voice recognition software.� Occasional wrong word or��sound alike� substitutions may have occurred due to the inherent limitations of voice recognition software.
Discharge Plan
Departure
Patient Disposition: Home (Routine Discharge)
Date of Disposition: 02/09/24
Time of Disposition: 16:44
Patient with high blood pressure during this ER visit?: No
Discharge Problem:
Chest pain
Instructions: Chest Pain That Is Not Caused by the Heart (DC)
Prescriptions:
No Action
cranberry 400 mg Capsule
400 mg PO DAILY
magnesium 200 mg Tablet
150 mg PO DAILY
cholecalciferol (vitamin D3) [Vitamin D3] 25 mcg (1,000 unit) Tablet
25 mcg PO DAILY
Visbiome 112.5 billion cell Capsule
1 cap PO DAILY
omega 8-szz-qlz-fish oil [Fish Oil] 1,000 mg (120 mg-180 mg) Capsule
1 cap PO DAILY
Eliquis 5 mg Tablet
10 mg PO BID Qty: 60 0RF
Referrals:
Dali Martinez, DO [Active] -
UNKNOWN - PT DOES,NOT KNOW [Family Provider] -
Activity Restrictions/Additional Instructions:
Please continue with Eliquis 5 mg twice a day. You may use Tylenol for pain. Return for worsening symptoms otherwise follow-up with cardiology and pulmonology
Interventions
Interventions:
*Risk Screen - Suicide Last Done: 02/09/24 12:23
*Neglect/Abuse Screening Last Done: 02/09/24 12:23
*ED COVID-19 Vaccine History Last Done: 02/09/24 12:23
Discharge Date and Time
Print Language: VIETNAMESE
[2024-02-09 15:00] VITALS: BP 137/84
[2024-02-09 16:00] VITALS: BP 129/73
== END 2024-02-09 17:01 | disposition home or self-care (01) ==
LOC: EMR 12:10
PROVIDERS: EMERGENCY PHYSICIAN Emergency Medicine
DX: R07.89 Other chest pain (principal); I48.91 Unspecified atrial fibrillation; K21.9 Gastro-esophageal reflux disease without esophagitis; I10 Essential (primary) hypertension; Z79.01 Long term (current) use of anticoagulants; Z86.711 Personal history of pulmonary embolism
CPT/HCPCS: 99283; 71046; 93005

== ENCOUNTER 2024-12-21 05:55 | Day surgery (SDC) | payer MEDICARE, OTHER, SELFPAY ==
[2024-12-21] VITALS (13 sets, daily range): BP systolic 105–140; BP diastolic 64–81; BMI 31.5
[2024-12-21 09:14] LABS: ACT-LR - POC 329 Seconds (116-155)
[2024-12-21 09:34] LABS: ACT-LR - POC 345 Seconds (116-155)
[2024-12-21 12:28] LABS: ACT-LR - POC > 397 Seconds (116-155)
--- NOTE | 2024-12-21 12:42 | ITS.CL.ABL ---
Sustainability Specialist - Ablation
Ablation
Procedure Report:
ELECTROPHYSIOLOGIC STUDY AND POSSIBLE ABLATION
DATE: December 21, 2024
Primary Care Provider: Dr. Vanesa Craven
INDICATION:
Symptomatic Atrial Fibrillation.
Paroxysmal
HISTORY: See H and P.
Symptomatic AF, poorly controlled with attempted medical therapy
Prior PVI April 2009 in May 2013
HAS-BLED: 1
Age
CHADSVASc: 4 (Age, F, PE - thrmboembolic event)
PRESENTING RHYTHM: SR
HISTORY: See H and P.
Symptomatic AF, poorly controlled with attempted medical therapy.
ANTIARRHYTHMIC DRUG: Propafenone
ANTICOAGULATION: Eliquis 5 mg twice daily
'TIME-OUT': called and confirmed.
SEDATION/ANESTHESIA: provided via the anesthesia department using general anesthesia.
PROCEDURE:
Ultrasound Guidance with real-time visualization of needle insertion and vessel patency performed by ut for femoral venous Vascular Access. Images were taken and saved for the patient's permanent record. Imaging findings typical femoral venous
anatomy. Direct visualization of needle puncture into the femoral vein was observed and recorded.
A decapolar CS catheter was placed within the CS for mapping and pacing.
The intracardiac ultrasound catheter was positioned in the RA for continuous intracardiac ultrasound imaging.
Heparin bolus and infusion to target ACT at 300 -350 seconds was administered. Transseptal puncture was performed. This entailed advancing a sheath with dilator into the superior vena cava and withdrawing both (monitoring intracardiac ultrasound,
fluoroscopy and tip pressure) with the tip oriented toward the atrial septum. The fossa ovalis was engaged (indicated by sudden displacement of the sheath tip as well as tenting of the fossa seen on intracardiac ultrasound).
The [employer] transseptal system was used. Left atrial catheter position was confirmed by echocardiographic imaging and fluoroscopy followed by RF delivery using the [employer] system resulting in successful LA access with pressure monitoring
demonstrating LA pressure waveforms (LA mean pressure 11 mm Hg). The sheath was advanced over the dilator and positioned in the left atrium.
The [employer] multipolar mapping catheter was initially positioned through the transseptal sheath for high density mapping.
Geometry and voltage mapping was performed using the [employer] multipolar grid catheter. Ensite-X was utilized for three-dimensional electroanatomical mapping.
A 3-D map was created using Ensite-X in Voxel mode. A 3-D reconstructed CT image was compared to the 3-D [employer] map to assist in anatomic evaluation, mapping and ablation.
High density electroanatomical mapping demonstrates near isolation of the pulmonary veins. There is slight reconnection at the right superior pulmonary vein towards its anterior superior quadrant.
The [employer] catheter and system was used for cardiac ablation. Catheter positioning was guided and confirmed using both I.C.E. and fluoroscopy.
Ablation approach included reisolation of the pulmonary vein and additional ablation lesion set targeting the posterior wall of the left atrium.
At the end of ablation there is electrical isolation at each pulmonary vein ostia (LSPV, LIPV, RSPV, RIPV) as well as electrical isolation of the posterior wall. Remapping demonstrated both entrance and exit block from all pulmonary veins and from
the posterior wall of the left atrium. Programmed electrical stimulation was then performed and unable to induce any arrhythmias.
I.C.E. :
Pre-Ablation Post-Ablation
LVEF: 55 % 55 %
WMA: none none
Pericardial effusion: none none
COMPLICATIONS:
None
SUMMARY:
- Mapping and ablation to isolate the PVs
- Additional AF ablation set after PVI.
- 3-D Electroanatomical Mapping
- Intracardiac Ultrasound
- Ultrasound guidance for vascular access
Post ablation, I discussed today's findings and results with the patient's , Dilip
RECOMMENDATIONS:
- Observe in monitored bed.
- Maintain oral anticoagulation.
- Office visit with me in 3-4 months.
Copy to:
Dr. Vanesa Craven
--- NOTE | 2024-12-21 14:38 | W.PN.UPDATE ---
Addendum entered and electronically signed by DENILSON Zamudio 12/21/24 16:10:
PT up to bathroom and right groin bled. Returned to bed, manual compression held with good hemostasis. Steri strip applied to site and redressed. Bedrest for another 30 minutes and now oob ambulating without groin bleed, no ht/pain/swelling.
Seen by Dr. Clements and stable for d/c.
Original Note:
Update Note
Progress Note Update
Pt seen post PFA. Right groin site without ht/bleeding, non tender. OOB ambulating, urinating without difficulty. Post EKG NSR 60s, no acute changes. Resume eliquis tonight. Followup with Dr. Clements as scheduled. Home later today if groin
site/tele remain stable.
== END 2024-12-21 16:10 | disposition home or self-care (01) ==
LOC: CATH 05:55
PROVIDERS: ATTENDING PHYSICIAN Internal Medicine Cardiovascular Disease; FAMILY PHYSICIAN Student in an Organized Health Care Education/Training Program
DX: I48.0 Paroxysmal atrial fibrillation (principal); Z79.01 Long term (current) use of anticoagulants; Z88.5 Allergy status to narcotic agent; Z88.0 Allergy status to penicillin; Z88.1 Allergy status to other antibiotic agents; Z98.890 Other specified postprocedural states
CPT/HCPCS: C1732; C1894; C1730; C1769; C1892; 76937; 85347; 86850; 86900; 86901; 93005; 93656; 93657; C1733; C1766

== ENCOUNTER → 2024-12-27 11:23 | Outpatient (REF) | payer MEDICARE, OTHER, SELFPAY | LOC: RAD 11:23 | PROVIDERS: ATTENDING PHYSICIAN Nurse Practitioner; FAMILY PHYSICIAN Student in an Organized Health Care Education/Training Program | DX: I48.0 Paroxysmal atrial fibrillation (principal); R09.89 Other specified symptoms and signs involving the circulatory and respiratory systems | CPT/HCPCS: 93926 ==

== ENCOUNTER → 2025-04-13 12:42 | Outpatient (REF) | payer MEDICARE, OTHER, SELFPAY | LOC: RAD 12:42 | PROVIDERS: ATTENDING PHYSICIAN Internal Medicine Cardiovascular Disease; FAMILY PHYSICIAN Student in an Organized Health Care Education/Training Program | DX: R09.89 Other specified symptoms and signs involving the circulatory and respiratory systems (principal) | CPT/HCPCS: 93880 ==

== ENCOUNTER → 2025-08-10 06:55 | Outpatient (REF) | payer MEDICARE, OTHER, SELFPAY | LOC: PAVMRI 06:55 | PROVIDERS: ATTENDING PHYSICIAN Specialist; FAMILY PHYSICIAN Student in an Organized Health Care Education/Training Program | DX: R20.0 Anesthesia of skin (principal) | CPT/HCPCS: 70551 ==